=== PATIENT | female | born 1995 | race Caucasian/White ===

== ENCOUNTER 2019-12-08 20:25 | Emergency (ER) | payer SELFPAY ==
[~2019-12-08] VITALS: Ht 152.4 cm; Wt 61.4 kg
[2019-12-08 20:32] VITALS: TEMP 98.2
[2019-12-08] MEDS ORDERED: PREDNISONE20 MG PO (21:01)
[2019-12-08 22:08] VITALS: BP 118/62; PULSE 76
== END 2019-12-08 22:08 | disposition home or self-care (01) ==
LOC: COL.ER 20:25
DX: T63.481A Toxic effect of venom of other arthropod, accidental (unintentional), initial encounter (principal); F17.210 Nicotine dependence, cigarettes, uncomplicated; Z88.8 Allergy status to other drugs, medicaments and biological substances
CPT/HCPCS: J2930